=== PATIENT | female | born 1990 | race Caucasian/White ===

== ENCOUNTER 2016-10-19 19:37 | Emergency (ER) | payer OTHER ==
--- NOTE | 2016-10-19 20:34 | ED MED RECONCILIATION SUMMARY ---
Patient: KATLIN JOHNSON Medication Reconciliation Report [facility] VisitID: [id number] [address] [place] [address] 25y, F Registration Date/Time: 10/19/2016 Weight: 48.5 kg Height/Length: 60 in. BMI: 20.9 ALLERGIES: The patient's Home Medications are listed below: THE FOLLOWING MEDICATIONS NEED TO BE RECONCILED: Bactrim DS Oral, just finished a course 10/16 Cephalexin Oral, just finished a course on 10/16 The source(s) of the original Home Medication information: Not obtained. The following Medications were given to the patient in the Emergency Department: None. The following Medications were prescribed to the patient: None.
--- NOTE | 2016-10-19 20:34 | ED NURSING NOTES ---
Clinical Report - Nurses [facility] [address] [place] [address] 10/19/2016 19:39 Patient: KATLIN JOHNSON TRIAGE Triage time 19:55 Oct 19 2016. Acuity: LEVEL 3. Chief Complaint: SKIN LESION. Alert. RUPERT COMA SCORE: Rupert Coma Scale: 15- eyes open spontaneously (4); best verbal response- oriented x 4 (5); best motor response- obeys commands (6). --20:05 Serg Scott R.N. 19:55 10/19/16. BP: 129/82. HR: 98. RR: 16. O2 saturation: 100% on room air. Temp: 98.7 F (oral). Pain level now: 0/10. --20:05 Serg Scott R.N. Weight: 48.5 kg stated. Height/Length: 60 inches Per Patient. BMI: 20.9. --20:01 Serg Scott R.N. Medications Bactrim DS Oral (just finished a course 10/16). --19:59 Serg Scott R.N. Cephalexin Oral (just finished a course on 10/16). --20:00 Serg Scott R.N. History Arrived by private vehicle. Historian: patient. Accompanied by friend. Primary physician (none). ( Recent I+D of an abscess in the (L) antecubital region ~ 14 days ago and pt was told that the area of the abscess looked swollen and might be infected. She would like to have it checked out because she has never had an abscess before and doesn't know what to expect. she also states that she had just finished a course of antibiotics.). Reported as ((L) antecubial space). PAST MEDICAL HX: Last normal menstrual period now. Denies current . SOCIAL HX: Heavy tobacco smoker (cigarette)- 1 pack per day. History of drug use: heroin, methamphetamines, marijuana. No alcohol use. ABUSE ASSESSMENT: No report of abuse. FALL RISK ASSESSMENT: Fall risk assessment completed. No fall risk identified. NUTRITIONAL RISK ASSESSMENT: The nutritional risk assessment revealed no deficiencies. FUNCTIONAL ASSESSMENT: Functional assessment: no impairments noted. LEARNING NEEDS ASSESSMENT: The learning needs assessment revealed no barriers. SKIN INTEGRITY ASSESSMENT: Skin integrity risk assessment completed. No skin integrity risk identified. --20:05 Serg Scott R.N. PROBLEMS: Substance Abuse. Abscess. --20:03 Serg Scott R.N. ADDITIONAL SURGERIES: Dental Surgery. --20:03 Serg Soctt R.N. Interventions ID band on patient. To treatment room. --20:05 Serg Scott R.N. PHYSICAL ASSESSMENT Ambulatory to room. GENERAL / NEURO / PSYCH: Alert. Oriented X 4. HEENT: Mucous membranes are pink. RESPIRATORY: Breath sounds within normal limits. CVS: Pulses within normal limits. GI / : Abdomen nontender. SKIN: Skin is intact, warm and dry. Normal skin turgor. --20:05 Serg Scott R.N. DISPOSITION / DISCHARGE The patient left the Emergency Department without being seen by a physician. Unable to locate patient. The patient did not notify the ED staff prior to leaving the department. Notified the charge nurse of patient departure. --20:34 Nori Colmenares R.N. Locked/Released at 10/19/2016 20:34 by Nori Colmenares R.N.
--- NOTE | 2016-10-19 20:34 | ED MED RECONCILIATION SUMMARY ---
Patient: KATLIN JOHNSON Medication Reconciliation Report [facility] VisitID: [id number] [address] [place] [address] 25y, F Registration Date/Time: 10/19/2016 Weight: 48.5 kg Height/Length: 60 in. BMI: 20.9 ALLERGIES: The patient's Home Medications are listed below: THE FOLLOWING MEDICATIONS NEED TO BE RECONCILED: Bactrim DS Oral, just finished a course 10/16 Cephalexin Oral, just finished a course on 10/16 The source(s) of the original Home Medication information: Not obtained. The following Medications were given to the patient in the Emergency Department: None. The following Medications were prescribed to the patient: None.
--- NOTE | 2016-10-19 20:34 | ED MAR SUMMARY ---
..... Medication Administration Record [facility] [address] [place], [place] [id number] Patient: KATLIN JOHNSON Visit ID: [id number] 25y, F Weight: 48.5 kg Height/Length: 60 in BMI: 20.9 ALLERGIES:
--- NOTE | 2016-10-19 20:34 | ED MAR SUMMARY ---
..... Medication Administration Record [facility] [address] [place], [place] [id number] Patient: KATLIN JOHNSON Visit ID: [id number] 25y, F Weight: 48.5 kg Height/Length: 60 in BMI: 20.9 ALLERGIES:
== END 2016-10-19 20:20 | disposition home or self-care (01) ==
LOC: ED SRH 19:37
DX: Z53.21 Procedure and treatment not carried out due to patient leaving prior to being seen by health care provider (principal)